=== PATIENT | male | born 1965 | race Caucasian/White ===

== ENCOUNTER → 2020-09-27 | Outpatient (REF) | payer OTHER | LOC: M SMT PRO 12:40 | PROVIDERS: ATTEND Urology | DX: C61 Malignant neoplasm of prostate (principal) | CPT/HCPCS: 88341; 88342; G0416 ==

== ENCOUNTER → 2021-11-28 | Outpatient (CLI) | payer BC, OTHER ==
[~2021-11-28] MED LIST: PROHANCE 279.3MG/ML 15ML VIAL As Ordered ONE; PROHANCE 279.3MG/ML 5ML VIAL As Ordered ONE
== END ==
LOC: M RAD 12:37
PROVIDERS: ATTEND Urology
DX: C61 Malignant neoplasm of prostate (principal)

== ENCOUNTER → 2021-12-12 | Outpatient (REF) | payer BC, OTHER | LOC: M SMT 13:05 | PROVIDERS: ATTEND Urology | DX: C61 Malignant neoplasm of prostate (principal) ==

== ENCOUNTER → 2021-12-19 | Outpatient (REF) | payer BC, OTHER | LOC: M SMT 15:43 | PROVIDERS: ATTEND Urology | DX: R30.0 Dysuria (principal) ==

== ENCOUNTER → 2023-04-15 | Outpatient (CLI) | payer BC, OTHER | LOC: M PLAIMG 11:18 | PROVIDERS: ATTEND Physician Assistant | DX: I35.2 Nonrheumatic aortic (valve) stenosis with insufficiency (principal); I34.0 Nonrheumatic mitral (valve) insufficiency ==

== ENCOUNTER 2023-08-06 10:34 | Day surgery (SDC) | payer BC ==
[~2023-08-06] VITALS: Ht 167.6 cm; Wt 94.8 kg
[2023-08-06] MEDS: DOCUSATE SODIUM 100MG CAPSULE PO SCH (09:00)
[~2023-08-06 10:34] MED LIST changes: +ATOR40TA75 PO; +DILT120C77 PO; +LISI10TA22 PO; +PREV30TA3 PO; -PROHANCE 279.3MG/ML 15ML VIAL As Ordered ONE; -PROHANCE 279.3MG/ML 5ML VIAL As Ordered ONE; +THERTAB52 PO
[2023-08-06] MEDS ORDERED: PERCOCET 5MG/325MG TAB PO PRN (11:35)
[2023-08-06] MEDS ORDERED: ACETAMINOPHEN TAB 650MG DOSE (2X325MG) PO PRN (11:35)
[2023-08-06] MEDS ORDERED: HOME MED LIST COMPLETE! XX SCH (11:40)
[2023-08-06] MEDS: LR 1,000 ML IV SCH (11:45)
[2023-08-06] MEDS: ceFAZolin SOD 2 GM in IV 1 EA IV ONE (11:45)
[2023-08-06] MEDS: HEPARIN SOD (PORCINE) 5000UNITS/ML 1ML VIAL/SYRINGE SQ ONE (11:55)
[2023-08-06] MEDS ORDERED: ROCURONIUM BROMIDE 50MG/5ML VIAL As Ordered ONE (12:00)
[2023-08-06] MEDS ORDERED: LIDOCAINE 2% 100MG/5ML SDV (FOR ANES.) As Ordered ONE (12:00)
[2023-08-06] MEDS ORDERED: fentaNYL 250 MCG/5 ML INJECTION As Ordered ONE (12:00)
[2023-08-06] MEDS ORDERED: ONDANSETRON 4MG 2ML VIAL As Ordered ONE (12:00)
[2023-08-06] MEDS ORDERED: propofoL 200 MG/20 ML VIAL As Ordered ONE (12:00)
[2023-08-06] MEDS ORDERED: MIDAZOLAM INJ 2MG/2ML VIAL As Ordered ONE (12:00)
[2023-08-06] MEDS ORDERED: ACETAMINOPHEN 1000MG 100ML IV BAG As Ordered ONE (12:01)
[2023-08-06] MEDS ORDERED: HYDROmorphone HCL 2MG/ML 1ML VIAL As Ordered ONE (12:13)
[2023-08-06] MEDS: LIDOCAINE 1% SDV 30ML VIAL As Ordered ONE (12:15)
[2023-08-06] MEDS ORDERED: ESMOLOL INJ 100MG/10ML VIAL As Ordered ONE (13:55)
[2023-08-06] MEDS: ceFAZolin 2 GM/D5W 50 ML IV BAG As Ordered ONE (16:35)
[2023-08-06] MEDS ORDERED: PHENYLephrine 500MCG 5ML (100MCG/ML) SYRINGE As Ordered ONE (16:40)
[2023-08-06] MEDS ORDERED: fentaNYL 100 MCG/2 ML INJECTION IV PRN (17:55)
[2023-08-06] MEDS ORDERED: oxyCODONE 5MG TAB PO PRN (17:55)
[2023-08-06 18:59] LABS: HEMATOCRIT 39.1 % (42.0-52.0); HEMOGLOBIN 13.1 g/dl (13.5-17.5); MEAN CORPUSCULAR HEMOGLOBIN 32.7 pg (27.0-33.0); MEAN CORPUSCULAR HGB CONC 33.5 g/dl (32.0-36.5); MEAN CORPUSCULAR VOLUME 97.5 fl (80.0-96.0); PLATELET COUNT, AUTOMATED 147 10^3/uL (150-450); RED BLOOD COUNT 4.01 10^6/uL (4.30-6.10); WHITE BLOOD COUNT 13.2 10^3/uL (4.0-10.0)
[2023-08-06 19:17] LABS: BLOOD UREA NITROGEN 15 MG/DL (9-23); CALCIUM LEVEL 7.9 MG/DL (8.5-10.1); CARBON DIOXIDE LEVEL 25 MMOL/L (20-31); CHLORIDE LEVEL 109 MMOL/L (98-107); CREATININE FOR GFR 1.01 MG/DL (0.70-1.30); GLOMERULAR FILTRATION RATE > 60.0 (>56); GLUCOSE, FASTING 157 MG/DL (60-100); POTASSIUM SERUM 4.6 MMOL/L (3.5-5.1); SODIUM LEVEL 140 MMOL/L (136-145)
[2023-08-06] MEDS ORDERED: ceFAZolin SOD 1 GM in D5W MINI-BAG PLUS 50 ML IV SCH (19:30)
[2023-08-06] MEDS: ONDANSETRON 4MG 2ML VIAL IV PRN ×2 (20:33→23:16)
[2023-08-06 21:58] LABS: CK-MB VALUE MASS 1.7 NG/ML (<3.6); MAGNESIUM LEVEL 1.6 MG/DL (1.8-2.4)
[2023-08-06 21:59] LABS: MB/CK RELATIVE INDEX 1.06 (< OR =4)
[2023-08-06] MEDS ORDERED: HEPARIN SOD (PORCINE) 5000UNITS/ML 1ML VIAL/SYRINGE SC SCH (22:00)
[2023-08-06] MEDS: PERCOCET 5MG/325MG TAB PO PRN (22:46)
[2023-08-06] MEDS: MAG SULF 1GM/100ML (MAG RUN) 1 GM in IV 1 EA IV ONE (22:50)
[2023-08-06] MEDS: NS 1,000 ML IV SCH (23:16)
[2023-08-06] MEDS: MORPHINE 4 MG/ML 1ML VIAL IV ONE (23:17)
[2023-08-06] MEDS: ceFAZolin SOD 1 GM in D5W MINI-BAG PLUS 50 ML IV SCH (23:42)
[2023-08-06] MEDS: dilTIAZem 120MG **CD** CAPSULE PO SCH (23:53)
[2023-08-06] MEDS: ATORVASTATIN 20 MG TAB PO SCH (23:53)
[2023-08-07] MEDS: METOCLOPRAMIDE INJ 10MG/2ML VIAL IV ONE (00:27)
[2023-08-07] MEDS: PANTOPRAZOLE 40MG VIAL IV ONE (00:48)
[2023-08-07 04:50] VITALS: BP 124/67; TEMP 99.2; O2SAT 96
[2023-08-07 06:12] LABS: HEMATOCRIT 35.3 % (42.0-52.0); HEMOGLOBIN 11.8 g/dl (13.5-17.5); MEAN CORPUSCULAR HEMOGLOBIN 32.7 pg (27.0-33.0); MEAN CORPUSCULAR HGB CONC 33.4 g/dl (32.0-36.5); MEAN CORPUSCULAR VOLUME 97.8 fl (80.0-96.0); PLATELET COUNT, AUTOMATED 156 10^3/uL (150-450); RED BLOOD COUNT 3.61 10^6/uL (4.30-6.10); WHITE BLOOD COUNT 10.4 10^3/uL (4.0-10.0)
[2023-08-07] MEDS: HEPARIN SOD (PORCINE) 5000UNITS/ML 1ML VIAL/SYRINGE SC SCH (06:25)
[2023-08-07 06:38] LABS: BLOOD UREA NITROGEN 15 MG/DL (9-23); CALCIUM LEVEL 7.5 MG/DL (8.5-10.1); CARBON DIOXIDE LEVEL 26 MMOL/L (20-31); CHLORIDE LEVEL 108 MMOL/L (98-107); CREATININE FOR GFR 0.97 MG/DL (0.70-1.30); GLOMERULAR FILTRATION RATE > 60.0 (>56); GLUCOSE, FASTING 123 MG/DL (60-100); MAGNESIUM LEVEL 1.9 MG/DL (1.8-2.4); POTASSIUM SERUM 4.4 MMOL/L (3.5-5.1); SODIUM LEVEL 138 MMOL/L (136-145)
[2023-08-07 07:35] VITALS: BP 107/58; TEMP 99.1; O2SAT 97
[2023-08-07 09:00] VITALS: BP 107/58
[2023-08-07] MEDS: OMEPRAZOLE 20MG CAP PO SCH (09:42)
[2023-08-07 12:00] VITALS: BP 118/58; TEMP 98.1; O2SAT 96
[2023-08-07] MEDS ORDERED: PERCOCET PO (15:12)
[2023-08-07] MEDS ORDERED: CIPR-249 PO (15:12)
[2023-08-07] MEDS ORDERED: COLA100C5 PO (15:12)
== END 2023-08-07 16:53 | disposition home or self-care (01) ==
LOC: UNDOADMIN 10:34 → M SDC 10:34 → M OR 10:34 → EDSTATUS 12:30 → M PCU 08-07 04:50 → M OR 08-07 04:50 → M PCU 08-07 04:50 → UNDODISIN 08-07 16:53 → M SDC 08-07 16:53
PROVIDERS: ATTEND Urology
DX: C61 Malignant neoplasm of prostate (principal); R07.89 Other chest pain; I38 Endocarditis, valve unspecified; I10 Essential (primary) hypertension; E78.5 Hyperlipidemia, unspecified; K21.9 Gastro-esophageal reflux disease without esophagitis; G47.30 Sleep apnea, unspecified; Z87.891 Personal history of nicotine dependence; Z79.899 Other long term (current) drug therapy
CPT/HCPCS: 36415; 55866; 80048; 82330; 82550; 82553; 82947; 83735; 84132; 84295; 84484; 85014; 85027; 86850; 86900; 86901; 88309; 93005; C9113; J0131; J0665; J0690; J1100; J1170; J1805; J2250; J2371; J2405; J2765; J3010; J3475; S2900

== ENCOUNTER → 2024-06-23 | Outpatient (CLI) | payer BC ==
[~2024-06-23] MED LIST changes: +CIPR-249 PO; +COLA100C5 PO; +PERCOCET PO
== END ==
LOC: M PLAIMG 08:27
PROVIDERS: ATTEND Physician Assistant
DX: I35.2 Nonrheumatic aortic (valve) stenosis with insufficiency (principal)